=== PATIENT | male | born 2005 | race African-American/Black ===

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

== ENCOUNTER 2024-07-18 12:13 | Emergency (ER) | payer OTHER ==
[~2024-07-18] VITALS: Ht 165.1 cm; Wt 64.0 kg
[2024-07-18 12:16] VITALS: O2SAT 98
[2024-07-18] MEDS ORDERED: KETOROLAC 30MG/ML VIAL IV STA (13:08)
[2024-07-18] MEDS ORDERED: SODIUM CHLORIDE 0.9% 1,000 ML IV ONE (13:15)
[2024-07-18] MEDS ORDERED: ONDANSETRON HCL 4MG/2ML INJ IV STA (13:57)
[2024-07-18 15:28] LABS: BASOPHILS % 0.2 % (0.0-2.0); HEMATOCRIT. 48.5 % (42.0-52.0); HEMOGLOBIN. 16.6 g/dL (14.0-18.0); LYMPHOCYTES % 10.7 % (20.0-50.0); MEAN CORPUSCULAR HEMOGLOBIN 29.6 pg (28.0-32.0); MEAN CORPUSCULAR HGB CONC 34.4 g/dL (31.0-37.0); MEAN CORPUSCULAR VOLUME 86.1 fL (80.0-94.0); MEAN PLATELET VOLUME 8.4 fl (7.4-10.4); MONOCYTES % 4.4 % (2.0-8.0); NEUTROPHILS % 84.7 % (40.0-76.0); PLATELET 127 x1000/uL (130-400); RED BLOOD CELL COUNT 5.63 mill/uL (4.7-6.1); RED CELL DISTRIBUTION WIDTH 12.3 % (11.6-14.6); WHITE BLOOD COUNT 7.7 x1000/uL (4.5-11.0)
[2024-07-18 15:38] LABS: CHLORIDE 110 mEq/L (98-107); POTASSIUM 3.2 mEq/L (3.5-5.1); SODIUM 138 mEq/L (136-145)
[2024-07-18 15:39] LABS: CALCIUM 8.2 mg/dL (8.7-10.4); CARBON DIOXIDE 19 mEq/L (21-32); INR 1.5; PROTHROMBIN TIME 15.9 sec (9.6-11.0)
[2024-07-18 15:44] LABS: CREATININE 1.3 mg/dL (0.6-1.3); GLUCOSE 99 mg/dL (70-105); UREA NITROGEN BLOOD 27 mg/dL (9-23)
[2024-07-18] MEDS ORDERED: ONDA-239 PO (16:22)
[2024-07-18] MEDS: ONDANSETRON 4MG ODT PO ONE (17:08)
[2024-07-18 17:09] VITALS: BP 120/78; PULSE 101; RESP 14; TEMP 37.7; O2SAT 99
== END 2024-07-18 17:10 | disposition home or self-care (01) ==
LOC: ER 12:20
DX: R11.2 Nausea with vomiting, unspecified (principal); R19.7 Diarrhea, unspecified; R00.0 Tachycardia, unspecified; E87.6 Hypokalemia
CPT/HCPCS: 99285; 71045; 80048; 85025; 85610; 36415; 93005; Q0162; J7030